=== PATIENT | female | born 1950 | race Caucasian/White ===

== ENCOUNTER 2023-05-27 07:38 | Emergency (ER) | payer MEDICARE ==
--- OUTSIDE RECORDS SUMMARY | 2023-05-27 07:45 | XMS REPORT | Continuity of Care Document ---
:1950 Author Organization [facility] t Address [address] [facility] [address] [place] [address] Care Team Providers Name Role Phone Ant IBARRA, Carol Ann Primary Care Physician [phone] KHUSHBOO Attending Clinician Unavailable Yosi Attending Clinician Unavailable Chiara YOO, Ole Machado Attending Clinician Unavailable Mercedez John DO Attending Clinician Angeles Rowe MD Attending Clinician ANGELES ROWE Attending Clinician Unavailable DENNYS GOMEZ Attending Clinician Unavailable Michael Lorenzo Attending Clinician KHUSHBOO Admitting Clinician Unavailable Yosi Admitting Clinician Unavailable Angeles Rowe MD Admitting Clinician ANGELES ROWE Admitting Clinician Unavailable Payers Payer Name Policy Type Policy Number Effective Date Expiration Date [facility]2GCW 2021 (MEDICARE 00:00:00 REPLACEMENT HMO) Problems Condition Condition Condition Status Onset Resolution Last Treating Co mments Source Name Details Category Date Date Treatment Clinician Date COVID-19 COVID-19 Disease Active Unive rs 8-24 ity of 00:00: [address] Branch FALL- BACK FALL- Diagnosis Active 2017-06-06 Memoria PAIN BACK PAIN 04-04 14:59:00 l Active 00:00: Jovi 04/04/2017 [facility] Jovi 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 Jovi (disorder) (disorder) Resolved Problem 04/08/2017 [facility] No known No known Disease Metho di active active st problems problems Hospit a l History of Past Illness Condition Condition Condition Status Onset Resolution Last Treating Co mments Source Name Details Category Date Date Treatment Clinician Date Contusion Contusion Problem 2017-04-08 2017-04-08 Memoria of of 04-05 05:05:50 05:05:50 l abdominal abdominal 05:00: Herm yogi wall, wall, 00 initial initial encounter encounter 04/05/2017 7 [facility] Dorsalgia, Dorsalgia Problem 2017-04-08 2017-04-08 Memoria unspecifie , 04-05 05:05:50 05:05:50 l d unspecifie 05:00: Renzo n d 00 04/05/2017 7 [facility] Allergies, Adverse Reactions, Alerts Allergy Allergy Status Severity Reaction(s) Onset Inactive Treating Comm ents Source Name Type Date Date Clinician CODEINE DRUG Active Rash 2020-0 Univers INGREDI 8-24 ity of 00:00: [place] 00 Medical Branch PENICILL DRUG Active Rash 2020-0 Univers IN INGREDI 824 ity of 00:00: [place] 00 Medical Branch Codeine Propensi Active Rash 202-0 Univers ty to 824 ity of adverse 00:00: [place] reaction 00 Medical s Branch Penicill Propensi Active Rash 2020-0 Univer s in ty to 824 ity of adverse 00:00: [place] reaction 00 Medical s Branch Codeine Propensi Active Methodi ty to [address] [facility] adverse 00:00: Hospita reaction 00 l s to drug Penicill Propensi Active Method i ins ty to 1-14 st adverse 00:00: Hospita reaction 00 l s to drug Penicill Propensi Active Method i ins ty to [address] adverse 00:00: Hospita reaction 00 l s to drug Codeine Codeine Active Memoria Sulfate Sulfate l [place] Demerol Demerol Active Memoria HCl HCl l [place] penicill penicill Active Memori a ins ins l Jovi Social History Social Habit Start Date Stop Date Quantity Comments Source Exposure to [facility] University of SARS-CoV-2 (event) [facility] Sexual orientation Method ist Hospital History SDOH Zoroastrian Alcohol Frequency Hospita l History SDOH Zoroastrian Alcohol Std Drinks Hospit al History SDWA Zoroastrian Alcohol Binge Hospital History SDOH 2021-04-27 2021-04-27 14 University o f Education 00:00:00 00:00:00 [facility] History of Social 2019-04-25 2019-04-[address] function 00:00:00 00:00:00 Hospital Alcohol intake 2018-09-17 2018-09-17 Current drinker Metho dist 00:00:00 00:00:00 of alcohol Hospital (finding) Alcohol Comment 2018-09-17 2018-09-17 occasional Zoroastrian 00:00:00 00:00:00 Hospital Tobacco use and 2018-09-17 2018-09-17 Smokeless tobacco [facility] exposure 00:00:00 00:00:00 non-user Hospital Sex Assigned At [birth year] Zoroastrian 00:00:00 00:00:00 Hospital Smoking Status Start Date Stop Date Source Social History [facility] Medications Ordered Filled Start Stop Current Ordering Indication Dosage Frequency Signature Comments Components Source Medication Medication Date Date Medication? Clinician (SIG) Name Name losartan 25 Yes 25mg Take 25 mg Univers mg tablet 8-28 by mouth ity of 19:28: daily. [address] hydroCHLORO Yes 12.5mg Take 12.5 Univers thiazide 8-28 mg by ity of 12.5 mg 19:28: mouth [place] capsule 11 daily. Medical Branch FLUoxetine Yes 20mg Take 20 mg U nivers 20 mg 8-28 by mouth ity of capsule 19:28: daily. [address] omeprazole Yes 20mg Take 20 mg U nivers 20 mg 8-28 by mouth ity of capsule 19:28: daily. [address] DULoxetine Yes 60mg Take 60 mg U nivers (CYMBALTA) 8-28 by mouth ity o f 60 mg 19:28: daily. At [place] capsule 11 night Medical Branch losartan 25 Yes 25mg Take 25 mg Univers mg tablet 8-28 by mouth ity of 19:28: daily. [address] hydroCHLORO Yes 12.5mg Take 12.5 Univers thiazide 8-28 mg by ity of 12.5 mg 19:28: mouth [place] capsule 11 daily. Medical Branch FLUoxetine 0 Yes 20mg Take 20 mg U nivers 20 mg 8-28 by mouth ity of capsule 19:28: daily. [address] Branch omeprazole 0 Yes 20mg Take 20 mg U nivers 20 mg 8-28 by mouth ity of capsule 19:28: daily. [address] DULoxetine 0 Yes 60mg Take 60 mg U nivers (CYMBALTA) 8-28 by mouth ity o f 60 mg 19:28: daily. At [address] Branch losartan 25 0 Yes 25mg Take 25 mg Univers mg tablet 8-28 by mouth ity of 19:28: daily. [address] hydroCHLORO 0 Yes 12.5mg Take 12.5 Univers thiazide 8-28 mg by ity of 12.5 mg 19:28: mouth [place] capsule 11 daily. [facility] Branch FLUoxetine 0 Yes 20mg Take 20 mg U nivers 20 mg 8-28 by mouth ity of capsule 19:28: daily. [address] omeprazole 0 Yes 20mg Take 20 mg U nivers 20 mg 8-28 by mouth ity of capsule 19:28: daily. [address] DULoxetine 0 Yes 60mg Take 60 mg U nivers (CYMBALTA) 8-28 by mouth ity o f 60 mg 19:28: daily. At [address] Branch losartan 25 0 Yes 25mg Take 25 mg Univers mg tablet 8-28 by mouth ity of 19:28: daily. [address] hydroCHLORO 0 Yes 12.5mg Take 12.5 Univers thiazide 8-28 mg by ity of 12.5 mg 19:28: mouth [place] capsule 11 daily. Medical Branch FLUoxetine 0 Yes 20mg Take 20 mg U nivers 20 mg 8-28 by mouth ity of capsule 19:28: daily. [address] omeprazole 0 Yes 20mg Take 20 mg U nivers 20 mg 8-28 by mouth ity of capsule 19:28: daily. [address] DULoxetine 0 Yes 60mg Take 60 mg U nivers (CYMBALTA) 8-28 by mouth ity o f 60 mg 19:28: daily. At [address] remdesivir 2020- No 100mg 100 mg, IV Univers 100 mg in 05-01 Infusion, ity of NaCl 0.9% 17:00: 18:00 ONCE, 1 [place] (NS[place] 100 mL 00 :00 dose, Sat Med ical MINI-BAG 05/01/21 at Bran h 1200, Administer over 60 Minutes, 100 mL
Is the patient mechanical ly ventilated ? NO
Is the patient requiring supplement al oxygen? YES remdesivir 2020- No 100mg 100 mg, IV Univers 100 mg in 05-01 Infusion, ity of NaCl 0.9% 17:00: 18:00 ONCE, 1 [place] (NS[place] 100 mL 00 :00 dose, Sat Med ical MINI-BAG 05/01/21 at [facility] h 1200, Administer over 60 Minutes, 100 mL
Is the patient mechanical ly ventilated ? NO
Is the patient requiring supplement al oxygen? YES losartan Yes 50mg 50 mg, Univers (COZAAR) 05-01 Oral, ity of tablet 50 14:00: DAILY, [place] mg 00 First dose Medical (after [place] last modificati on) on [facility] 05/01/21 at 0900, Until Discontinu ed, Routine losartan Yes 50mg 50 mg, Univers (COZAAR) 05-01 Oral, ity of tablet 50 14:00: DAILY, [place] mg 00 First dose Medical (after [place] last modificati on) on [facility] 05/01/21 at 0900, Until Discontinu ed, Routine DULoxetine Yes 60mg 60 mg, Unive rs (CYMBALTA) 05-01 Oral, QHS, ity of capsule 60 02:00: [place] [facility] on [facility] 04/30/21 at Branch 2100, Until Discontinu ed, Routine DULoxetine Yes 60mg 60 mg, Unive rs (CYMBALTA) 05-01 Oral, QHS, ity of capsule 60 02:00: First [place] mg 00 on [facility] 04/30/21 at Branch 2100, Until Discontinu ed, Routine albuterol Yes [id number] 2{puff} Inhale 2 Univers 90 8-28 Puffs ity of mcg/actuati 00:00: every 6 Manjeet as on inhaler 00 (six) Medical hours as Branch needed for Wheezing, Shortness of Breath, Bronchospa sm or Chest tightness. benzonatate 1-0 Yes [id number] 100mg Take 1 Univers 100 mg 8-28 capsule by ity of capsule 00:00: mouth 3 (three) Medical times Branch daily as needed for Cough. dexAMETHaso 2021-0 Yes [id number] 4mg Take 1 Univers ne 4 mg 8-28 tablet by ity of tablet 00:00: mouth [place] 00 every 12 Medical (twelve) Branch hours. albuterol 2020-0 Yes [id number] 2{puff} Inhale 2 Univers 90 8-28 Puffs ity of mcg/actuati 00:00: every 6 Manjeet as on inhaler 00 (six) Medical hours as Branch needed for Wheezing, Shortness of Breath, Bronchospa sm or Chest tightness. benzonatate 2020-0 Yes [id number] 100mg Take 1 Univers 100 mg 8-28 capsule by ity of capsule 00:00: mouth (three) Medical times Branch daily as needed for Cough. dexAMETHaso 1-0 Yes [id number] 4mg Take 1 Univers ne 4 mg 8-28 tablet by ity of tablet 00:00: mouth [place] 00 every 12 Medical (twelve) Branch hours. albuterol 2020-0 Yes [id number] 2{puff} Inhale 2 Univers 90 8-28 Puffs ity of mcg/actuati 00:00: every 6 Manjeet as on inhaler 00 (six) Medical hours as Branch needed for Wheezing, Shortness of Breath, Bronchospa sm or Chest tightness. benzonatate 1-0 Yes [id number] 100mg Take 1 Univers 100 mg 8-28 capsule by ity of capsule 00:00: mouth 3 (three) Medical times Branch daily as needed for Cough. dexAMETHaso 2021-0 Yes [id number] 4mg Take 1 Univers ne 4 mg 8-28 tablet by ity of tablet 00:00: mouth [place] 00 every 12 Medical (twelve) Branch hours. albuterol 1-0 Yes [id number] 2{puff} Inhale 2 Univers 90 8-28 Puffs ity of mcg/actuati 00:00: every 6 Manjeet as on inhaler 00 (six) Medical hours as Branch needed for Wheezing, Shortness of Breath, Bronchospa sm or Chest tightness. benzonatate Yes [id number] 100mg Take 1 Univers 100 mg 8-28 capsule by ity of capsule 00:00: mouth 3 [place] 00 (three) Medical times Branch daily as needed for Cough. dexAMETHaso Yes [id number] 4mg Take 1 Univers ne 4 mg 8-28 tablet by ity of tablet 00:00: mouth [place] 00 every 12 Medical (twelve) Branch hours. ketorolac 0 2020- No 15mg 15 mg, Unive rs (TORADOL) 04-29 Slow IV ity of injection 15:45: 01:09 Push, BID, [place] 15 mg 00 :00 4 doses, Medical First dose Branch on [place] 04/29/21 at 1045, Last dose on Mon04/30/21 at 1999, Routine
catering staff member approving Restricted medication : ANGELES ROWE ketorolac 2020- No 15mg 15 mg, Unive rs (TORADOL) 04-29 Slow IV ity of injection 15:45: 01:09 Push, BID, [place] 15 mg 00 :00 4 doses, Medical First dose Branch on [place] 04/29/21 at 1045, Last dose on Mon04/30/21 at 2000, Routine
catering staff member approving Restricted medication : ANGELES ROWE benzonatate Yes 100mg 100 mg, Un charlene (TESSALON 04-29 Oral, ity of PERLES) 15:41: TIDPRN, [place] capsule 100 04 Starting Medi ridge mg [place] Branch 04/29/21 at 1041, Until Discontinu ed, Routine, Cough benzonatate 0 Yes 100mg 100 mg, Un charlene (TESSALON 8- Oral, ity of PERLES) 15:41: TIDPRN, [place] capsule 100 04 Starting Medi ridge mg [place] Branch 04/29/21 at 1041, Until Discontinu ed, Routine, Cough omeprazole 0 Yes 20mg 20 mg, Unive rs (PRILOSEC) 8 Oral, ity of capsule 20 14:00: DAILY, [place] mg 00 First dose Medical on Mon04/28/21 at 0900, Until Discontinu ed, Routine omeprazole Yes 20mg 20 mg, Unive rs (PRILOSEC) 825 Oral, ity of capsule 20 14:00: DAILY, [place] mg 00 First dose Medical on Mon04/28/21 at 0900, Until Discontinu ed, Routine dexamethaso 2020- No 6mg 6 mg, IV U nivers ne 04-28 Push, ity of (DECADRON 14:00: 13:59 DAILY, 10 [place] PHOSPHATE[place] 00 :00 doses, Medical injection 6 First dose Br anch mg (after last modificati on) on Mon04/28/21 at 0900, Last dose on Mon05/07/21 at 0900, Routine dexamethaso 2020- No 6mg 6 mg, IV U nivers ne 04-28 Push, ity of (DECADRON 14:00: 13:59 DAILY, 10 [place] PHOSPHATE[place] 00 :00 doses, Medical injection 6 First dose Br anch mg (after last modificati on) on Mon04/28/21 at 0900, Last dose on Mon05/07/21 at 0900, Routine losartan 2020- No 25mg 25 mg, Univer s (COZAAR) 04-2827 Oral, ity of tablet 25 14:00: 16:11 DAILY, [place] mg 00 :49 First dose Medical on Mon04/28/21 at 0900, Until Discontinu ed, Routine losartan 2020- No 25mg 25 mg, Univer s (COZAAR) 04-28 Oral, ity of tablet 25 14:00: 16:11 DAILY, [place] mg 00 :49 First dose Medical on Mon04/28/21 at 0900, Until Discontinu ed, Routine enoxaparin Yes 40mg 40 mg, Unive rs (LOVENOX) 8 Subcutaneo ity of injection 01:00: us, Q12H, [place] as 40 mg 00 First dose Medical on Mon [place] 04/27/21 at 2000, Until Discontinu ed, Routine enoxaparin Yes 40mg 40 mg, Unive rs (LOVENOX) 8-25 Subcutaneo ity of injection 01:00: us, Q12H, [place] as 40 mg 00 First dose Medical on [facility] 04/27/21 at 2000, Until Discontinu ed, Routine NaCl 0.9% 0 2020- No [id number] 500mL at 999 Univers (NS) bolus 8- 08-24 mL/hr, 500 it y of infusion 22:00: 20:59 mL, IV [place] 500 mL 00 :00 Piggyback, Medical ONCE, 1 Branch dose, [facility] 04/27/21 at 1700, STAT NaCl 0.9% 0 2020- No [id number] 500mL at 999 Univers (NS) bolus 8- 08-24 mL/hr, 500 it y of infusion 22:00: 20:59 mL, IV [place] 500 mL 00 :00 Piggyback, Medical ONCE, 1 Branch dose, [facility] 04/27/21 at 1700, STAT guaiFENesin 0 Yes 200mg 200 mg, Un charlene (FENESIN 8-24 Oral, ity of IR) tablet 17:51: Q4HPRN, [place] 200 mg 18 Starting Medical [facility] 04/27/21 at 1251, Until Discontinu ed, Routine, Cough guaiFENesin 0 Yes 200mg 200 mg, Un charlene (FENESIN 8-24 Oral, ity of IR) tablet 17:51: Q4HPRN, [place] 200 mg 18 Starting Medical [facility] 04/27/21 at 1251, Until Discontinu ed, Routine, Cough ipratropium 0 Yes 2{puff} 2 Puff, Univers (ATROVENT 8-24 Inhalation ity of HFA) 17:51: , Q6HPRN, [place] inhaler 2 10 Starting Medica l Puff [facility] 04/27/21 at 1251, Until Discontinu ed, Routine, Shortness of Breath, Wheezing, Bronchospa sm, Chest tightness< br>Is this order for a patient with suspected or confirmed COVID-19 infection? Yes ipratropium 2020-0 Yes 2{puff} 2 Puff, Univers (ATROVENT 8-24 Inhalation ity of HFA) 17:51: , Q6HPRN, [place] inhaler 2 10 Starting Medica l Puff [facility] 04/27/21 at 1251, Until Discontinu ed, Routine, Shortness of Breath, Wheezing, Bronchospa sm, Chest tightness< br>Is this order for a patient with suspected or confirmed COVID-19 infection? Yes albuterol Yes 2{puff} 2 Puff, Un charlene (VENTOLIN) 04-27 Inhalation ity of inhaler 2 17:51: , Q6HPRN, [place] as Puff [address] [facility] 04/27/21 at 1251, Until Discontinu ed, Routine, Wheezing, Shortness of Breath, Bronchospa sm, Chest tightness albuterol Yes 2{puff} 2 Puff, Un charlene (VENTOLIN) 04-27 Inhalation ity of inhaler 2 17:51: , Q6HPRN, [place] as Puff 08 Starting [facility] 04/27/21 at 1251, Until Discontinu ed, Routine, Wheezing, Shortness of Breath, Bronchospa sm, Chest tightness traMADoL 2020- No 50mg 50 mg, Univer s (ULTRAM) 04-27 Oral, ity of tablet 50 17:50: 15:41 Q8HPRN, [place] mg 11 :17 Starting [facility] 04/27/21 at 1250, Until [place] 04/29/21 at 1041, Routine, Pain (scale 4-6) traMADoL 2020- No 50mg 50 mg, Univer s (ULTRAM) 04-27 Oral, ity of tablet 50 17:50: 15:41 Q8HPRN, [place] mg 11 :17 Starting [facility] 04/27/21 at 1250, Until [place] 04/29/21 at 1041, Routine, Pain (scale 4-6) acetaminoph Yes 650mg 650 mg, Un charlene en 04-27 Oral, ity of (TYLENOL) 17:50: Q6Judy YOO tablet 650 07 Starting Medic al mg [facility] 04/27/21 at 1250, Until Discontinu ed, Routine, Pain (scale 1-3) acetaminoph Yes 650mg 650 mg, Un charlene en 04-27 Oral, ity of (TYLENOL) 17:50: Q6HPRN, [place] tablet 650 07 [facility] at 1250, Until Discontinu ed, Routine, Pain (scale 1-3) dexamethaso 2020- No 10mg 10 mg, IV Univers ne 04-27 Push, ity of (DECADRON 14:45: 14:07 ONCE, 1 [place] PHOSPHATE) 00 :00 dose, Tue Medi ridge injection 04/27/21 at Bran ch 10 mg 0945, STAT dexamethaso 2020- No 10mg 10 mg, IV Univers ne 04-27 Push, ity of (DECADRON 14:45: 14:07 ONCE, 1 [place] PHOSPHATE) 00 :00 dose, Tue Medi ridge injection 04/27/21 at Bran ch 10 mg 0945, STAT ondansetron 2020- No 4mg 4 mg, Slow Univers (ZOFRAN 04-27 IV Push, ity of (PF)) 14:00: 13:09 ONCE, 1 [place] injection 4 00 :00 dose, Tue Med ical mg 04/27/21 at [place] 0900, OZIEL acetaminoph 2020- No 1000mg 1,000 mg, Univers en 04-27 Oral, ity of (TYLENOL) 14:00: 13:09 ONCE, 1 [place] tablet 00 :00 dose, Tue Medical 1,000 mg 04/27/21 at [facility] h 0900, OZIEL NaCl 0.9% 2020- No 1000mL at 999 Uni vers (NS) bolus 04-27 mL/hr, ity of infusion 14:00: 13:09 1,000 mL, Manjeet as 1,000 mL 00 :00 IV Medical Infusion, [place] ONCE, 1 dose, 04/27/21 at 0900, STAT ondansetron 2020- No 4mg 4 mg, Slow Univers (ZOFRAN 04-27 IV Push, ity of (PF)) 14:00: 13:09 ONCE, 1 [place] injection 4 00 :00 dose, Tue Med ical mg 04/27/21 at Branch 0900, OZIEL acetaminoph 2020- No 1000mg 1,000 mg, Univers en 04-2724 Oral, ity of (TYLENOL) 14:00: 13:09 ONCE, 1 [place] tablet 00 :00 dose, Tue Medical 1,000 mg 04/27/21 at [facility] h 0900, OZIEL NaCl 0.9% 2020- No 1000mL at 999 Uni vers (NS) bolus 04-2724 mL/hr, ity of infusion 14:00: 13:09 1,000 mL, Manjeet as 1,000 mL 00 :00 IV Medical Infusion, [place] ONCE, 1 dose, 04/27/21 at 0900, STAT levocetiriz 2019-0 Yes TAKE 1 Meth gayla ine (XYZAL) 2-24 TABLET(5 st 5 MG tablet 00:00: MG) BY [facility] 00 MOUTH l EVERY EVENING levocetiriz 2020-0 Yes TAKE 1 Meth gayla ine (XYZAL) 2-24 TABLET(5 st 5 MG tablet 00:00: MG) BY [facility] 00 MOUTH l EVERY EVENING levocetiriz 2020-0 Yes TAKE 1 Meth gayla ine (XYZAL) 2-24 TABLET(5 st 5 MG tablet 00:00: MG) BY [facility]osp [facility] 00 MOUTH l EVERY EVENING fluticasone 2019-0 Yes SHAKE Metho di propionate 9-[address] (FLONASE) 00:00: USE 2 Hospita 50 00 SPRAYS(100 l mcg/actuati MCG) IN on nasal EACH spray NOSTRIL DAILY fluticasone 2018-0 Yes SHAKE Metho di propionate 9-[address] (FLONASE) 00:00: USE 2 Hospita 50 00 SPRAYS(100 l mcg/actuati MCG) IN on nasal EACH spray NOSTRIL DAILY fluticasone 2019-0 Yes SHAKE Metho di propionate 9-[address] (FLONASE) 00:00: USE 2 Hospita 50 00 SPRAYS(100 l mcg/actuati MCG) IN on nasal EACH spray NOSTRIL DAILY cholecalcif Yes 1000U QD Take 1,000 Methodi dom, 1-[address] vitamin D3, 08:11: mouth Hospi ta (VITAMIN 15 daily. l D3) 1,000 unit tablet cholecalcif 2019-0 Yes 1000U QD Take 1,000 Methodi dom, 1-[address] vitamin D3, 08:11: mouth Hospi ta (VITAMIN 15 daily. l D3) 1,000 unit tablet cholecalcif 2019-0 Yes 1000U QD Take 1,000 Methodi dom, 1-[address] vitamin D3, 08:11: mouth Hospi ta (VITAMIN 15 daily. l D3) 1,000 unit tablet aspirin 2019-0 Yes 81mg QD Take 81 mg Meth gayla (ECOTRIN) 1-[address] 81 MG 08:11: daily. Hospita enteric 03 l coated tablet aspirin 2019-0 Yes 81mg QD Take 81 mg Meth gayla (ECOTRIN) 1-[address] 81 MG 08:11: daily. Hospita enteric 03 l coated tablet aspirin 2019-0 Yes 81mg QD Take 81 mg Meth gayla (ECOTRIN) 1-[address] 81 MG 08:11: daily. Hospita enteric 03 l coated tablet pantoprazol Yes TK 1 T PO M ethodi e 1-[address] (PROTONIX) 00:00: MONTHS AND H ospita 40 MG EC 00 THEN TK 1 l tablet T PO QAM AFTER THE 3 MONTHS pantoprazol Yes TK 1 T PO M ethodi e 1-[address] (PROTONIX) 00:00: MONTHS AND H ospita 40 MG EC 00 THEN TK 1 l tablet T PO QAM AFTER THE 3 MONTHS pantoprazol Yes TK 1 T PO M ethodi e 1-[address] (PROTONIX) 00:00: MONTHS AND H ospita 40 MG EC 00 THEN TK 1 l tablet T PO QAM AFTER THE 3 MONTHS escitalopra 2017-09 Yes TK 1 T PO M ethodi m (LEXAPRO) -[address] 20 MG 00:00: Hospita tablet 00 l escitalopra 2017-09 Yes TK 1 T PO M ethodi m (LEXAPRO) -[address] 20 MG 00:00: Hospita tablet 00 l escitalopra 2017-09 Yes TK 1 T PO M ethodi m (LEXAPRO) 1-[address] 20 MG 00:00: Hospita tablet 00 l Nitrofurant Yes 100 mg = 1 Memoria oin 100 MG 8-02 cap, PO, l Oral 07:27: BID, X 7 [place] Capsule 00 day, # 14 [Macrobid] cap, 0 Refill(s) tramadol Yes 50 mg = 1 Arun sofi hydrochlori 8-02 tab, PO, l de 50 MG 07:27: Q6H, PRN Yesenia nn Oral Tablet 00 Pain, X 3 day, # 12 tab, 0 Refill(s) Nitrofurant Yes 100 mg = 1 Memoria oin 100 MG 8-02 cap, PO, l Oral 07:27: BID, X 7 [place] Capsule 00 day, # 14 [Macrobid] cap, 0 Refill(s) tramadol Yes 50 mg = 1 Arun sofi hydrochlori 8-02 tab, PO, l de 50 MG 07:27: Q6H, PRN Yesenia nn Oral Tablet 00 Pain, X 3 day, # 12 tab, 0 Refill(s) Vital Signs Vital Name Observation Time Observation Value Comments Source Systolic blood 2021-05-01 16:41:00 125 mm[Hg] [facility] Diastolic blood 2021-05-01 16:41:00 67 mm[Hg] [facility] Heart rate 2021-05-01 16:41:00 66 /min [facility] Body temperature 2021-05-01 16:41:00 36.72 [facility] Respiratory rate 2021-05-01 16:41:00 20 /min [facility] Oxygen saturation in 2021-05-01 16:41:00 94 /min [facility] Arterial blood by [facility] Pulse oximetry [place] Body height 2021-04-27 16:37:00 162.6 cm [facility] Body weight 2021-04-27 16:37:00 82.555 kg [facility] BMI 2021-04-27 16:37:00 31.24 kg/m2 [facility] Respitory Rate 2017-04-05 07:33:00 Memori al [facility] Heart Rate 2017-04-05 07:33:00 [facility] [place] Systolic (mm Hg) 2017-04-05 07:33:00 Arun rial [place] Diastolic (mm Hg) 2017-04-05 07:33:00 Mem orial [place] Respitory Rate 2017-04-05 06:18:00 Memori al [place] Systolic (mm Hg) 2017-04-05 06:18:00 Arun rial [place] Diastolic (mm Hg) 2017-04-05 06:18:00 Mem orial [facility] Heart Rate 2017-04-05 06:18:00 [facility] [place] Respitory Rate 2017-04-05 03:58:00 Memori al [facility] Heart Rate 2017-04-05 03:58:00 [facility] Temperature Oral (F) 2017-04-05 03:58:00 97.6 F [facility] Weight 2017-04-05 03:58:00 [facility] Systolic (mm Hg) 2017-04-05 03:58:00 Arun rial [place] Diastolic (mm Hg) 2017-04-05 03:58:00 Mem orial [facility] Procedures Procedure Date / Time Performing Clinician Source Performed CBC WITH DIFF 2021-04-28 09:42:00 Soledad [facility] GLYCOSYLATED HEMOGLOBIN 2021-04-28 09:42:00 Soledad [facility] (A1C) [facility] N-TERMINAL PRO-BNP 2021-04-28 09:42:[address] [facility] FERRITIN SERUM 2021-04-28 09:42:00 Soledad [facility] HEPATIC FUNCTION PANEL 2021-04-28 09:42:00 Soledad [facility] ([id number]) (ALB,T.PRO,BILI Medical Branch T,BU/BC,ALT,AST,ALK PHOS) BASIC METABOLIC PANEL 2021-04-28 09:42:00 Soledad [facility] (NA, K, CL, CO2, Medical Branch GLUCOSE, BUN, CREATININE, CA) LIPID PANEL 2021-04-28 09:42:00 Soledad [facility] ([id number])(TOTAL Medical [place] CHOLESTEROL, TRIGLYCERIDES, HDL) LACTIC ACID WHOLE BLOOD 2021-04-27 22:04:00 Soledad [facility] LACTIC ACID WHOLE BLOOD 2021-04-27 18:40:00 Soledad [facility] URINALYSIS 2021-04-27 18:38:00 Soledad [facility] BLOOD CULTURE SCREEN 2021-04-27 18:38:00 Soledad [facility] D-DIMER 2021-04-27 18:37:00 Soledad [facility] PROCALCITONIN 2021-04-27 18:37:00 Soledad [facility] LACTATE DEHYDROGENASE 2021-04-27 18:37:00 Soledad [facility] C-REACTIVE PROTEIN 2021-04-27 18:37:[address] [facility] XR CHEST 1 VW 2021-04-27 13:20:34 Mercedez [facility] HB ECG ROUTINE & RHYTHM 2021-04-27 13:05:49 [facility] CBC WITH DIFF 2021-04-27 13:04:00 [facility] GLYCOSYLATED HEMOGLOBIN 2021-04-27 13:04:00 Soledad [facility] (A1C) [facility] N-TERMINAL PRO-BNP 2021-04-27 13:04:[address] [facility] LACTIC ACID WHOLE BLOOD 2021-04-27 13:04:00 [place] [facility] FERRITIN SERUM 2021-04-27 13:04:00 Soledad [facility] TROPONIN I 2021-04-27 13:04:00 [place] [facility] COMP. METABOLIC PANEL 2021-04-27 13:04:00 [facility] [facility] ([id number]) [facility] LIPID PANEL 2021-04-27 13:04:00 Soledad [facility] ([id number])(TOTAL Medical Branch CHOLESTEROL, TRIGLYCERIDES, HDL) Hysterectomy [facility] Plan of Care Planned Activity Planned Date Details Comments Source Future Scheduled 2023-05-10 Screening for [facility] Test 02:58:49 malignant neoplasm of colon (procedure) [code = 678172125] Future Scheduled 2023-05-10 Screening for [facility] Test 02:58:49 malignant neoplasm of colon (procedure) [code = 177142588] Future Scheduled 2023-05-10 Screening for [facility] Test 02:58:49 malignant neoplasm of colon (procedure) [code = 932719991] Future Scheduled 2023-05-10 COVID-19 VACCINE (#1) [facility] Test 02:58:49 [code = COVID-19 VACCINE (#1)] Future Scheduled 2023-05-10 Hepatitis C screening [facility] Test 02:58:49 (procedure) [code = 065639195] Future Scheduled 2023-05-10 BREAST CANCER [facility] Test 02:58:49 SCREENING [code = BREAST CANCER SCREENING] Future Scheduled 2023-05-10 Screening for [facility] Test 02:58:49 malignant neoplasm of colon (procedure) [code = 133587111] Future Scheduled 2023-05-10 Screening for [facility] Test 02:58:49 malignant neoplasm of colon (procedure) [code = 640564231] Future Scheduled 2023-05-10 SHINGLES VACCINES (1 Met [facility] Test 02:58:49 of 2) [code = SHINGLES VACCINES (1 of 2)] Future Scheduled 2023-05-10 65+ PNEUMOCOCCAL [facility] Test 02:58:49 VACCINE (1 - PCV) [code = 65+ PNEUMOCOCCAL VACCINE (1 - PCV)] Future Scheduled 2023-05-10 INFLUENZA VACCINE (#1) [facility] Test 02:58:49 [code = INFLUENZA VACCINE (#1)] Future Scheduled 2022-05-06 HEPATITIS B VACCINES [facility] Test 03:40:23 (1 of 3 - 3-dose series) [code = HEPATITIS B VACCINES (1 of 3 - 3-dose series)] Future Scheduled 2022-05-06 COVID-19 VACCINE (#1) [facility] Test 03:40:23 [code = COVID-19 VACCINE (#1)] Future Scheduled 2022-05-06 Hepatitis C screening [facility] Test 03:40:23 (procedure) [code = 993034098] Future Scheduled 2022-05-06 BREAST CANCER [facility] Test 03:40:23 SCREENING [code = BREAST CANCER SCREENING] Future Scheduled 2022-05-06 COLONOSCOPY SCREENING [facility] Test 03:40:23 [code = COLONOSCOPY SCREENING] Future Scheduled 2022-05-06 SHINGLES VACCINES (1 Met [facility] Test 03:40:23 of 2) [code = SHINGLES VACCINES (1 of 2)] Future Scheduled 2022-05-06 65+ [facility]OCOCCAL [facility] Test 03:40:23 VACCINE (1 - PCV) [code = 65+ PNEUMOCOCCAL VACCINE (1 - PCV)] Future Scheduled 2022-05-06 INFLUENZA VACCINE [facility] Test 03:40:23 [code = INFLUENZA VACCINE] Future Scheduled 2021-10-05 COVID-19 VACCINE (1) [facility] Test 22:28:34 [code = COVID-19 VACCINE (1)] Future Scheduled 2021-10-05 Hepatitis C screening [facility] Test 22:28:34 (procedure) [code = 355591403] Future Scheduled 2021-10-05 BREAST CANCER [facility] Test 22:28:34 SCREENING [code = BREAST CANCER SCREENING] Future Scheduled 2021-10-05 COLONOSCOPY SCREENING [facility] Test 22:28:34 [code = COLONOSCOPY SCREENING] Future Scheduled 2021-10-05 SHINGLES VACCINES (#1) [facility] Test 22:28:34 [code = SHINGLES VACCINES (#1)] Future Scheduled 2021-10-05 65+ PNEUMOCOCCAL [facility] Test 22:28:34 VACCINE (1 of 1 - PPSV23) [code = 65+ PNEUMOCOCCAL VACCINE (1 of 1 - PPSV23)] Future Scheduled 2021-10-05 INFLUENZA VACCINE Method [facility] Test 22:28:34 [code = INFLUENZA VACCINE] Encounters Start End Encounter Admission Attending Care Care Encounter Source Date/Time Date/Time Type Type Clinicians Facility Department ID 2022-06-10 2022-06-10 Outpatient [facility] [id number] [facility] 00:00:00 00:00:00 [id number] [facility] l [facility] 2022-06-10 2022-06-10 Outpatient [facility] [id number] [facility] 00:00:00 00:00:00 [id number] Medica l Group 2022-06-10 2022-06-10 Outpatient [facility] G [id number] [facility] 00:00:00 00:00:00 [id number] Medica l Group 2022-05-06 2022-05-06 Outpatient [facility] DMG [id number] [facility] 00:00:00 00:00:00 [id number] Medica l Group 2022-05-03 2022-05-03 Outpatient Williams_V [facility]G DMG [id number] [facility] 00:00:00 00:00:00 [id number] Medica l Group 2022-03-18 2022-03-18 Outpatient DMG DMG [id number] [facility] 07:30:00 07:30:00 [id number] Medica l Group 2021-11-24 2021-11-24 Outpatient DMG DMG [id number] [facility] 09:00:00 09:00:00 [id number] Medica l Group 2021-06-07 2021-06-07 Outpatient PRIV PRIV [id number] [id number] [facility] 00[facility]00:00 00:00:00 [id number] Medica l 2021-06-07 2021-06-07 Outpatient PRIV PRIV [id number] [id number] [facility] 00:00:00 00:00:00 [id number] Medica l 2021-05-03 2021-05-03 Transition Russell Guadarrama [id number] [facility] 00:00:00 00:00:00 of Care Ole Carter Aguayo [id number] [phone] [facility] [address] Branch 2021-04-27 2021-05-01 [facility] John [facility] [id number] Univers 07:50:00 14:20:00 Encounter Angeles Rowe [facility] [id number] [place] [phone] [facility] 109 Branch (CLC) 2021-04-27 2021-05-01 Inpatient X SOLEDAD [facility] PATRICK [id number] Univers 07:50:00 14:20:00 ANGELES alvarenga [facility] 2020-07-16 2020-07-16 [facility] [id number] [place] 00:00:00 00:00:00 DENNYS [facility] 2019-06-23 2019-06-23 Emergency E MHBL MHBL 7500 MHBL 12:07:00 12:07:00 2017-04-05 2017-04-05 Emergency [facility] [id number] Memoria 03:45:00 07:41:00 r Burton 00 l [facility] 2017-04-05 2017-04-05 Emergency [facility] [id number] Memoria 03:45:00 07:41:00 r Burton 00 l [facility] 2017-04-04 2017-04-05 Outpatient Basnawi, [address] [id number] 22:45:00 02:41:00 Abdullah 00 Darrick Results Test Description Test Time Test Comments Results Result Comments Source GLYCOSYLATED HEMOGLOBIN (A1C) 2021-04-28 11:03:12 Test Item Value Reference Range Interpretation Comme nts HGB A1C (test code = 4548-4) 6.9 % 4.0-5.7 H CALE (test code = CALE) Reference RangesNormal: <5.7%Prediabetes: 5.7 - 6.4%Diabetes: > 6.5% Lab Interpretation (test code = Abnormal 96257-2) [facility]2021-04-28 11:03:12 Test Item Value Reference Range Interpretation Comments HGB A1C (test code = 4548-4) 6.9 % 4.0-5.7 H CALE (test code = CALE) Lab Interpretation (test code = Abnormal 52187-3) [facility] with [id number] 11:00:56 Test Item Value Reference Range Interpretation Comments WBC (test code = See_Comment H [Automated 6690-2) message] The sy stem which generated this result transmitted reference range : 4.30 - 11.10 10*3/?L. The reference range was not used to interpret this result as normal/abnormal . RBC (test code = See_Comment L [Automated 789-8) message] The sy stem which generated this result transmitted reference range : 3.93 - 5.25 10*6/?L. The reference range was not used to interpret this result as normal/abnormal . HGB (test code = 10.7 g/dL 11.6-15.0 L 718-7) HCT (test code = 32.6 % 35.7-45.2 L 4544-3) MCV (test code = 86.0 fL 80.6-95.5 787-2) MCH (test code = 28.2 pg 25.9-32.8 785-6) MCHC (test code = 32.8 g/dL 31.6-35.1 786-4) RDW-SD (test code = 44.0 fL 39.0-49.9 95894-5) RDW-CV (test code = 14.1 % 12.0-15.5 788-0) PLT (test code = See_Comment [Automated 777-3) message] The sy stem which generated this result transmitted reference range : 166 - 358 10*3/ ?L. The reference r bj was not used to interpret this result as normal/abnormal . MPV (test code = 10.0 fL 9.5-12.9 59138-4) IPF % (test code = 2.7 % 1.3-7.7 Platelet count [id number]) measured by fluorescence method. NRBC/100 WBC (test See_Comment [Automat ed code = 5557514584) message] The system which generated this result transmitted reference range : 0.0 - 10.0 /100 WBCs. The refer ence range was not u sed to interpret th is result as normal/abnormal . NRBC x10^3 (test code <0.01 See_Comment [Auto mated = 2299744495) message] The s ystem which generated this result transmitted reference range : 10*3/?L. The reference range was not used to interpret this result as normal/abnormal . GRAN MAT (NEUT) % 87.2 % (test code = 770-8) IMM GRAN % (test code 0.80 % = 6764515154) LYMPH % (test code = 8.5 % 736-9) MONO % (test code = 3.4 % 5905-5) EOS % (test code = 0.0 % 713-8) BASO % (test code = 0.1 % 706-2) GRAN MAT x10^3(ANC) 12.16 10*3/uL 1.88-7.09 H (test code = 2279452960) IMM GRAN x10^3 (test 0.11 10*3/uL 0.00-0.06 H code = 9428174851) LYMPH x10^3 (test 1.19 10*3/uL 1.32-3.29 L code = 731-0) MONO x10^3 (test code 0.47 10*3/uL 0.33-0.92 = 742-7) EOS x10^3 (test code <0.03 0.03-0.39 L = 711-2) BASO x10^3 (test code <0.03 0.01-0.07 = 704-7) Lab Interpretation Abnormal (test code = 24567-9) [facility] with [id number] 11:00:56 Test Item Value Reference Range Interpretation Comments WBC (test code = See_Comment H [Automated 5290-2) message] The system which generated this result transmit sheila reference range : 4.30 - 11.10 10*3/?L. The reference range was not used to interpret this result as normal/abnormal . RBC (test code = See_Comment L [Automated 789-8) message] The system which generated this result transmit sheila reference range : 3.93 - 5.25 10*6/?L. The reference range was not used to interpret this result as normal/abnormal . HGB (test code = 10.7 g/dL 11.6-15.0 L 718-7) HCT (test code = 32.6 % 35.7-45.2 L 4544-3) MCV (test code = 86.0 fL 80.6-95.5 787-2) MCH (test code = 28.2 pg 25.9-32.8 785-6) MCHC (test code = 32.8 g/dL 31.6-35.1 786-4) RDW-SD (test code = 44.0 fL 39.0-49.9 71095-1) RDW-CV (test code = 14.1 % 12.0-15.5 788-0) PLT (test code = See_Comment [Automated 777-3) message] The system which generated this result transmit sheila reference range : 166 - 358 10*3/ ?L. The reference range was not u sed to interpret th is result as normal/abnormal . MPV (test code = 10.0 fL 9.5-12.9 16547-1) IPF % (test code = 2.7 % 1.3-7.7 1014367817) NRBC/100 WBC (test See_Comment [Automat ed code = 8373191803) message] The system which generated this result transmit sheila reference range : 0.0 - 10.0 /100 WBCs. The reference range was not used to interpret this result as normal/abnormal . NRBC x10^3 (test code <0.01 See_Comment [Auto mated = 9760838394) message] The system which generated this result transmit sheila reference range : 10*3/?L. The reference range was not used to interpret this result as normal/abnormal . GRAN MAT (NEUT) % 87.2 % (test code = 770-8) IMM GRAN % (test code 0.80 % = 0933385264) LYMPH % (test code = 8.5 % 736-9) MONO % (test code = 3.4 % 5905-5) EOS % (test code = 0.0 % 713-8) BASO % (test code = 0.1 % 706-2) GRAN MAT x10^3(ANC) 12.16 10*3/uL 1.88-7.09 H (test code = 4618520174) IMM GRAN x10^3 (test 0.11 10*3/uL 0.00-0.06 H code = 3873804399) LYMPH x10^3 (test code 1.19 10*3/uL 1.32-3.29 L = 731-0) MONO x10^3 (test code 0.47 10*3/uL 0.33-0.92 = 742-7) EOS x10^3 (test code = <0.03 0.03-0.39 L 711-2) BASO x10^3 (test code <0.03 0.01-0.07 = 704-7) Lab Interpretation Abnormal (test code = 97830-5) [facility] [id number] 10:42:11 Test Item Value Reference Range Interpretation Comments FERRITIN (test code = 268.0 ng/mL 11.0-264.0 H 2721963372) CALE (test code = CALE) Biotin has been reported to cause a negative bias, interpret results relative to patient's use of biotin. Lab Interpretation (test Abnormal code = 04588-3) [facility] [id number] 10:42:11 Test Item Value Reference Range Interpretation Comments FERRITIN (test code = 3014901871) 268.0 ng/mL 11.0-264.0 H CALE (test code = CALE) Lab Interpretation (test code = Abnormal 42461-8) [facility] [id number] 10:16:46 Test Item Value Reference Range Interpretation Comments NT-proBNP (test code 648 pg/mL See_Comment H [Autom ated = 7579444689) message] The system which generated this result transmitted reference range : <=125. The reference range was not used to interpret this result as normal/abnormal . CALE (test code = CALE) Biotin has been reported to cause a negative bias, interpret results relative to patient's use of biotin. Lab Interpretation Abnormal (test code = 52356-3) [facility] [id number] 10:16:46 Test Item Value Reference Range Interpretation Comments NT-proBNP (test code = 648 pg/mL See_Comment H [Aut omated message] 9937719375) The system [employer] generated this result transmit sheila reference range : <=125. The refe rence range was not u sed to interpret th is result as normal/abnormal . CALE (test code = CALE) Lab Interpretation (test Abnormal code = 73066-4) [facility]ville[facility] (54955) (ALB,T.PRO,BILI T,BU/BC,ALT,AST,ALK PHOS)2021-04-28 10:11:27 Test Item Value Reference Range Interpretation Comments TOTAL BILI (test code = 5134501245) 0.5 mg/dL 0.1-1.1 BILI UNCON (test code = 2057418297) 0.0 mg/dL 0.1-1.1 L BILI CONJ (test code = 8651870731) 0.0 mg/dL 0.0-0.3 T PROTEIN (test code = 6152993420) 6.4 g/dL 6.3-8.2 ALBUMIN (test code = 4827359182) 3.2 g/dL 3.5-5.0 L ALK PHOS (test code = 9170926705) 61 U/L 34-122 ALTv (test code = 1742-6) 31 U/L 5-35 AST(SGOT) (test code = 6555412381) 22 U/L 13-40 Lab Interpretation (test code = Abnormal 40184-5) [facility]ville[facility] (54563)(TOTAL CHOLESTEROL, TRIGLYCERIDES, HDL)2021-04-28 10:11:27 Test Item Value Reference Range Interpretation Comments CHOL (test code = 131 mg/dL 120-200 3880001382) HDL (test code = 35 mg/dL >50 L 0027473627) HDLC RATIO (test code = See_Comment [Au tomated message] 7950817987) The system [employer] generated this result transmit sheila reference range : <=4.5. The refe rence range was not u sed to interpret th is result as normal/abnormal . TRIG (test code = 87 mg/dL 30-170 1046809019) LDL CHOL (test code = 79 mg/dL See_Comment [Auto mated message] 34894-0) The system [employer] generated this result transmit sheila reference range : <=160. The refe rence range was not u sed to interpret th is result as normal/abnormal . VLDL (test code = 17 mg/dL 5-60 5687376136) Lab Interpretation (test Abnormal code = 05305-3) [facility] (98819) (ALB,T.PRO,BILI T,BU/BC,ALT,AST,ALK PHOS)2021-04-28 10:11:27 Test Item Value Reference Range Interpretation Comments TOTAL BILI (test code = 7103255327) 0.5 mg/dL 0.1-1.1 BILI UNCON (test code = 5856783168) 0.0 mg/dL 0.1-1.1 L BILI CONJ (test code = 8171785817) 0.0 mg/dL 0.0-0.3 T PROTEIN (test code = 4549543729) 6.4 g/dL 6.3-8.2 ALBUMIN (test code = 3418184421) 3.2 g/dL 3.5-5.0 L ALK PHOS (test code = 7723582085) 61 U/L 34-122 ALTv (test code = 1742-6) 31 U/L 5-35 AST(SGOT) (test code = 4293613743) 22 U/L 13-40 Lab Interpretation (test code = Abnormal 78215-5) [facility] (29831)(TOTAL CHOLESTEROL, TRIGLYCERIDES, HDL)2021-04-28 10:11:27 Test Item Value Reference Range Interpretation Comments CHOL (test code = 131 mg/dL 120-200 5275878054) HDL (test code = 35 mg/dL >50 L 3761891974) HDLC RATIO (test code = See_Comment [Au tomated message] 9532196903) The system [employer] generated this result transmit sheila reference range : <=4.5. The refe rence range was not u sed to interpret th is result as normal/abnormal . TRIG (test code = 87 mg/dL 30-170 4304220651) LDL CHOL (test code = 79 mg/dL See_Comment [Auto mated message] 27444-3) The system [employer] generated this result transmit sheila reference range : <=160. The refe rence range was not u sed to interpret th is result as normal/abnormal . VLDL (test code = 17 mg/dL 5-60 7482268860) Lab Interpretation (test Abnormal code = 21825-7) [facility] (NA, K, CL, CO2, GLUCOSE, BUN, CREATININE, CA)2021-04-28 10:11:26 Test Item Value Reference Range Interpretation Comments NA (test code = 138 mmol/L 135-145 3037988206) K (test code = 4.0 mmol/L 3.5-5.0 7356255965) CL (test code = 102 mmol/L 98-108 1246547571) CO2 TOTAL (test code 28 mmol/L 23-31 = 7811618978) AGAP (test code = 2-16 8458876097) BUN (test code = 19 mg/dL 7-23 0744851105) GLUCOSE (test code = 109 mg/dL 70-110 9005627108) CREATININE (test code 0.59 mg/dL 0.50-1.04 = 1684376826) CALCIUM (test code = 8.8 mg/dL 8.6-10.6 7365176311) eGFR (test code = mL/min/1.73m2 9269159376) CALE (test code = CALE) Association of Glomerular Filtration Rate (GFR) and Staging of Kidney Disease* + + +- +| GFR (mL/min/1.73 m2) ?| With Kidney Damage ?| ?Without Kidney Damage+ ------+ ----+ ------+| ?>90 ?| ?Stage one ?| ? Normal ?+ -+ + -+| ?60-89 ?| ?Stage two ?| ? Decreased GFR ? + + +- +| ?30-59 ?| ?Stage three ?| ? Stage three ? + + +- +| ?15-29 ?| ?Stage four ? | ? Stage four ?+ -+ + -+| ?<15 (or dialysis) ? ?| ?Stage five ? | ? Stage five ?+ -+ + -+ *Each stage assumes the associated GFR level has been in effect for at least three months. ?Stages 1 to 5, with or without kidney disease, indicate chronic kidney disease. Notes: Determination of stages one and two (with eGFR >59mL/min/1.73 m2) requires estimation of kidney damage for at least three months as defined by structural or functional abnormalities of the kidney, manifested by either:Pathological abnormalities or Markers of kidney damage (including abnormalities in the composition of the blood or urine or abnormalities in imaging tests). [facility] Metabolic Panel (NA, K, CL, CO2, GLUCOSE, BUN, CREATININE, CA)2021-04-28 10:11:26 Test Item Value Reference Range Interpretation Comments NA (test code = 6960062569) 138 mmol/L 135-145 K (test code = 6160911078) 4.0 mmol/L 3.5-5.0 CL (test code = 4494845101) 102 mmol/L 98-108 CO2 TOTAL (test code = 7613573592) 28 mmol/L 23-31 AGAP (test code = 8056196668) 2-16 BUN (test code = 3734734594) 19 mg/dL 7-23 GLUCOSE (test code = 9041758352) 109 mg/dL 70-110 CREATININE (test code = 0.59 mg/dL 0.50-1.04 5454001609) CALCIUM (test code = 1466832172) 8.8 mg/dL 8.6-10.6 eGFR (test code = 8713256417) mL/min/1.73m2 CALE (test code = CALE) [facility] Whole [id number] 22:10:43 Test Item Value Reference Range Interpretation Comments LACTIC ACID (test code = 1.79 mmol/L 0.50-2.20 7757199705) Lab Interpretation (test code = Normal 50548-0) [facility]ville[facility] Whole [id number] 22:10:43 Test Item Value Reference Range Interpretation Comments LACTIC ACID (test code = 1.79 mmol/L 0.50-2.20 2515309943) Lab Interpretation (test code = Normal 51100-0) [facility]-REACTIVE [id number] 19:35:59 Test Item Value Reference Range Interpretation Comments CRP (test code = 6310918513) 22.5 mg/dL <1.0 H Lab Interpretation (test code = Abnormal 50645-4) [facility]-REACTIVE [id number] 19:35:59 Test Item Value Reference Range Interpretation Comments CRP (test code = 2451384515) 22.5 mg/dL <1.0 H Lab Interpretation (test code = Abnormal 76040-0) [facility]ville[facility]AL[facility]ONIN2021-08-24 19:28:58 Test Item Value Reference Range Interpretation Comments Procalcitonin (test 0.51 ng/mL <0.08 H code = 4532075875) CALE (test code = CALE) INTERPRETATION OF PROCALCITONIN RESULTS IN ADULTS >= 18 YEARS OF AGE Initiation and discontinuation of antibiotics on patients with suspected or confirmed Lower Respiratory Tract Infection in Adults >= 18 years of age. + +-------- --------+ + -----+|Procalcitonin |Interpretation ?|Antibiotic ? ? |Considerations ? |ng/mL ? | ?|recommendation | ? + +-------- --------+ + -----+| <0.1 ? | Bacterial ? ? ?| Strongly ? ? ?| ? | ?| infection very | discouraged ? | Overruling: ? | ?| unlikely ? ? ? | ? | ? Clinically unstable ? ? ? + +-------- --------+ + ? High risk for adverse ? ? | <0.25 ?| Bacterial ? ? ?| Discouraged ? | ? outcome ? | ?| infection ? ? ?| ? | ? SEE IMPORTANT NOTE ?| ?| unlikely ? ? ? | ? | ? + +-------- --------+ + -----+| >=0.25 ? ? ? | Bacterial ? ? ?| Encouraged ? ?| ? | ?| infection ? ? ?| ? | ? | ?| likely ? | ? | Consider treatment failure ?+ +------- ---------+ -+ if levels does not decrease | >0.5 ? | Bacterial ? ? ?| Strongly ? ? ?| appropriately ? | ?| infection very | encouraged ? ?| ? | ?| likely ? | ? | ? + +-------- --------+ + -----+ Discontinuation of antibiotics in high-acuity patients with suspected or confirmed sepsis in Adults >= 18 years of age. + +-------- --------+ + -----+|Procalcitonin |Interpretation ?|Antibiotic ? ? |Considerations ? |ng/mL ? | ?|recommendation | ? + +-------- --------+ + -----+| <0.25 ?| Bacterial ? ? ?| Strongly ? ? ?| ? | ?| infection very | discouraged ? | Overruling: ? | ?| unlikely ? ? ? | ? | ? Clinically unstable ? ? ? + +-------- --------+ + ? High risk for adverse ? ? | <0.5 or drop | Bacterial ? ? ?| Discouraged ? | ? outcome ? | >80% from ? ?| infection ? ? ?| ? | ? SEE IMPORTANT NOTE ?| highest PCT ?| unlikely ? ? ? | ? | ? | level ?| ?| ? | ? + +-------- --------+ + -----+| >=0.5 ?| Bacterial ? ? ?| Encouraged ? ?| ? | ?| infection ? ? ?| ? | ? | ?| likely ? | ? | Consider treatment failure ?+ +------- ---------+ -+ if levels does not decrease | >1.0 ? | Bacterial ? ? ?| Strongly ? ? ?| appropriately ? | ?| infection very | encouraged ? ?| ? | ?| likely ? | ? | ? + +-------- --------+ + -----+ Percentage of drop of Procalcitonin calculation for Discontinuation of antibiotics in high-acuity patients with suspected or confirmed sepsis in Adults >= 18 years of age. ? Procalcitonin highest{}-Procalcitonin current{}Delta Procalcitonin = x100% ? Procalcitonin current {} IMPORTANT NOTE: Procalcitonin may be elevated without bacterial infection by physiologic stress related to trauma, van, chronic dialysis, metastatic cancer, surgery in the past seven days, malaria, some fungal infections, and some forms of vasculitis. The interpretation algorithm may not apply to patients with immunosuppression (equivalent of >10 mg of prednisone daily), HIV with CD4 cell count < 350 cells/mm3, active malignancy on systemic chemotherapy, solid organ transplant or hematopoietic stem cell transplantation, or hospital acquired pneumonia. Additionally, some clinical trials of procalcitonin have excluded patients with shock requiring vasopressor use, acute respiratory failure requiring mechanical ventilation, or those with known lung abscess/empyema. For further information please refer to:[email or web address] Lab Interpretation Abnormal (test code = 46182-9) [facility]AL[facility]IN2021[facility] 19:28:58 Test Item Value Reference Range Interpretation Comments Procalcitonin (test code = 0.51 ng/mL <0.08 H [id number]) CALE (test code = CALE) Lab Interpretation (test code = Abnormal 93275-2) [facility]villeGLYCOSYLATED HEMOGLOBIN (A1C)2021-04-27 19:18:00 Test Item Value Reference Range Interpretation Comments HGB A1C (test code = 6.7 % 4.0-5.7 H 4548-4) CALE (test code = CALE) Reference RangesNormal: <5.7%Prediabetes: 5.7 - 6.4%Diabetes: > 6.5% Lab Interpretation (test Abnormal code = 02334-4) [facility]OS[facility] H[facility]GLOBIN (A1C)2021-04-27 19:18:00 Test Item Value Reference Range Interpretation Comments HGB A1C (test code = 4548-4) 6.7 % 4.0-5.7 H CALE (test code = CALE) Lab Interpretation (test code = Abnormal 97270-4) [facility]LACT[facility] [id number] 19:09:57 Test Item Value Reference Range Interpretation Comments LDH (test code = 3933005623) 420 U/L 300-600 Lab Interpretation (test code = Normal 65747-4) [facility]LACT[facility] [id number] 19:09:57 Test Item Value Reference Range Interpretation Comments LDH (test code = 0162800774) 420 U/L 300-600 Lab Interpretation (test code = Normal 53160-4) [facility]villeD-[id number] 19:08:56 Test Item Value Reference Interpretation Comments Range D-DIMER (test code = See_Comment H [Autom ated 4029534116) message] The system which generated this result transmitted reference range : <0.50 ?g/mL (FEU). The reference range was not used to interpret this result as normal/abnormal . CALE (test code = This test may be CALE) used in conjunction with a clinical pretest probability (PTP) assessment model to exclude venous thromboembolism (VTE) in patients suspected of deep venous thrombosis (DVT) and pulmonary embolism (PE) A D-Dimer value less than 0.50 ?g/ml (FEU) has a negative predicative value of 96 to 100% (95% CI)and 97 to 100% (95% CI) as an aid in the diagnosis of deep vein thrombosis (DVT) and pulmonary embolism when there is low or moderate pretest probability of PE or DVT. D-Dimer values are expressed in initial fibrinogen equivalent units (FEU)" The assay results should be used with other information, including the clinical context, in forming a diagnosis. Lab Interpretation Abnormal (test code = 67571-2) [facility]villeD-[id number] 19:08:56 Test Item Value Reference Range Interpretation Comments D-DIMER (test code = See_Comment H [Autom ated message] 9357269140) The system JumpCam generated this result transmitted ref erence range: <0.50 ?g /mL (FEU). The refe rence range was not u sed to interpret this result as normal/abnor mal. CALE (test code = CALE) Lab Interpretation (test Abnormal code = 15042-2) [facility]URINALYSIS2021-08-24 18:59:50 Test Item Value Reference Range Interpretation Comments APPEARANCE (test code = Clear Clear 8605633716) COLOR (test code = Yellow Yellow 8524228252) PH (test code = 4.8-8.0 4777561535) SP GRAVITY (test code = 1.003-1.030 0077069258) GLU U QUAL (test code = Normal Normal 3752292651) BLOOD (test code = Negative Negative 3860874929) KETONES (test code = Negative Negative 2457296544) PROTEIN (test code = Negative Negative 2887-8) UROBILIN (test code = Normal Normal 9024541112) BILIRUBIN (test code = Negative Negative 7567152076) NITRITE (test code = Negative Negative 6560699682) LEUK RICHMOND (test code = Negative Negative 0413218963) RBC/HPF (test code = <1 See_Comment [Autom ated message] 1677851391) The system JumpCam generated this result transmitted ref erence range: 0 - 3 HP F. The reference range was not used to int erpret this result as normal/abnormal . WBC/HPF (test code = <1 See_Comment [Autom ated message] 6044067772) The system JumpCam generated this result transmitted ref erence range: 0 - 5 HP F. The reference range was not used to int erpret this result as normal/abnormal . BACTERIA (test code = Negative Negative 5252216912) MUCOUS (test code = Slight Negative LPF A 0763342976) TRANS EPI (test code = <1 See_Comment [Aut omated message] 1302162709) The system JumpCam generated this result transmitted ref erence range: <=1 HPF. The reference range was not used to int erpret this result as normal/abnormal . Lab Interpretation (test Abnormal code = 07869-9) [facility]2021-[facility]-24 18:59:50 Test Item Value Reference Range Interpretation Comments APPEARANCE (test code = Clear Clear 8273807514) COLOR (test code = Yellow Yellow 5176044274) PH (test code = 4.8-8.0 0521325877) SP GRAVITY (test code = 1.003-1.030 8322447477) GLU U QUAL (test code = Normal Normal 7295119421) BLOOD (test code = Negative Negative 9159684501) KETONES (test code = Negative Negative 7935227524) PROTEIN (test code = Negative Negative 2887-8) UROBILIN (test code = Normal Normal 4985506932) BILIRUBIN (test code = Negative Negative 0491001340) NITRITE (test code = Negative Negative 9240378105) LEUK R[place]MON[place] (test code = Negative Negative 9524049579) RBC/HPF (test code = <1 See_Comment [Autom ated message] 6314609073) The system JumpCam generated this result transmitted ref erence range: 0 - 3 HP F. The reference range was not used to int erpret this result as normal/abnormal . WBC/HPF (test code = <1 See_Comment [Autom ated message] 7207311350) The system JumpCam generated this result transmitted ref erence range: 0 - 5 HP F. The reference range was not used to int erpret this result as normal/abnormal . BACTERIA (test code = Negative Negative 9944397045) MUCOUS (test code = Slight Negative LPF A 1866502133) TRANS EPI (test code = <1 See_Comment [Aut omated message] 2334862259) The system JumpCam generated this result transmitted ref erence range: <=1 HPF. The reference range was not used to int erpret this result as normal/abnormal . Lab Interpretation (test Abnormal code = 27556-2) [facility]villeFERRITIN [id number] 18:50:31 Test Item Value Reference Range Interpretation Comments FERRITIN (test code = 244.0 ng/mL 11.0-264.0 6581574223) CALE (test code = CALE) Biotin has been reported to cause a negative bias, interpret results relative to patient's use of biotin. Lab Interpretation (test Normal code = 55029-2) [facility]villeFERRITIN [id number] 18:50:31 Test Item Value Reference Range Interpretation Comments FERRITIN (test code = 8429050981) 244.0 ng/mL 11.0-264.0 CALE (test code = CALE) Lab Interpretation (test code = Normal 07038-4) [facility] StephenvilleLactic Acid Whole [id number] 18:49:50 Test Item Value Reference Range Interpretation Comments LACTIC ACID (test code = 3.41 mmol/L 0.50-2.20 H 2593307742) Lab Interpretation (test code = Abnormal 84176-6) [facility]villeLactic Acid Whole [id number] 18:49:50 Test Item Value Reference Range Interpretation Comments LACTIC ACID (test code = 3.41 mmol/L 0.50-2.20 H 5201287708) Lab Interpretation (test code = Abnormal 74736-2) [facility] StephenvilleN-TERMINAL [id number] 18:25:48 Test Item Value Reference Range Interpretation Comments NT-proBNP (test code 429 pg/mL See_Comment H [Autom ated = 6595786212) message] The system which generated this result transmitted reference range : <=125. The reference range was not used to interpret this result as normal/abnormal . CALE (test code = CALE) Biotin has been reported to cause a negative bias, interpret results relative to patient's use of biotin. Lab Interpretation Abnormal (test code = 68882-8) [facility]villeN-TERMINAL [id number] 18:25:48 Test Item Value Reference Range Interpretation Comments NT-proBNP (test code = 429 pg/mL See_Comment H [Aut omated message] 2995668709) The system JumpCam generated this result transmit sheila reference range : <=125. The refe rence range was not u sed to interpret th is result as normal/abnormal . CALE (test code = CALE) Lab Interpretation (test Abnormal code = 91258-8) [facility] StephenvilleLIPID PANEL (86623)(TOTAL CHOLESTEROL, TRIGLYCERIDES, HDL)2021-04-27 18:15:25 Test Item Value Reference Range Interpretation Comments CHOL (test code = 158 mg/dL 120-200 5014388990) HDL (test code = 40 mg/dL >50 L 0339289619) HDLC RATIO (test code = See_Comment [Au tomated message] 6286631836) The system JumpCam generated this result transmit sheila reference range : <=4.5. The refe rence range was not u sed to interpret th is result as normal/abnormal . TRIG (test code = 128 mg/dL 30-170 7052465380) LDL CHOL (test code = 92 mg/dL See_Comment [Auto mated message] 26343-7) The system JumpCam generated this result transmit sheila reference range : <=160. The refe rence range was not u sed to interpret th is result as normal/abnormal . VLDL (test code = 26 mg/dL 5-60 2622648405) Lab Interpretation (test Abnormal code = 08269-1) [facility]villeLIPID PANEL (64753)(TOTAL CHOLESTEROL, TRIGLYCERIDES, HDL)2021-04-27 18:15:25 Test Item Value Reference Range Interpretation Comments CHOL (test code = 158 mg/dL 120-200 1835563524) HDL (test code = 40 mg/dL >50 L 2871688129) HDLC RATIO (test code = See_Comment [Au tomated message] 0684869964) The system JumpCam generated this result transmit sheila reference range : <=4.5. The refe rence range was not u sed to interpret th is result as normal/abnormal . TRIG (test code = 128 mg/dL 30-170 8893241418) LDL CHOL (test code = 92 mg/dL See_Comment [Auto mated message] 06172-4) The system JumpCam generated this result transmit sheila reference range : <=160. The refe rence range was not u sed to interpret th is result as normal/abnormal . VLDL (test code = 26 mg/dL 5-60 0839500807) Lab Interpretation (test Abnormal code = 06295-5) [facility]villeXR CHEST 1 [id number] 15:38:17 Mild burden of multifocal opacities associated with confirmed COVID-19pneumonia. Preliminary ReportDictated by Resident: Michael Fernandez MD., have reviewed this study and agreewith theabove report.EXAM: XR CHEST 1 VW HISTORY: 70 years-old Female; hypoxia . "COVID-19 pneumoniaconfirmed" TECHNIQUE: Single frontal view of the chest. COMPARISON: None FINDINGS: The lungs are mildly underinflated. Bilateral airspace and interstitialopacities predominantly affect the middle and lower lobes. No pleuralabnormality is visualized. ? The cardiomediastinal silhouette is normal accounting for technique. No acute osseous abnormality is present. [facility], Radiant Results Inft User - 04/27/2021 10:39 AM CDT EXAM: XR CHEST 1 VWHISTORY: 70 years-old Female; hypoxia . "COVID-19 pneumonia confirmed"TECHNIQUE: Single frontal view of the chest.COMPARISON: NoneFINDINGS:The lungs are mildly underinflated. Bilateral airspace and interstitialopacities predominantly affect the middle and lower lobes. No pleuralabnormality is visualized. The cardiomediastinal silhouette is normal accounting for technique.No acute osseous abnormality is present. IMPRESSIONMild burden of multifocal opacities associated with confirmed COVID-19pneumonia.Preliminary Report Dictated by Resident: Michael Murillo MD., have reviewed this study and agree with theabove report.[facility]XR CHEST 1 [id number] 15:38:17 Mild burden of multifocal opacities associated with confirmed COVID-19pneumonia. Preliminary ReportDictated by Resident: Michael Fernandez MD., have reviewed this study and agreewith theabove report.EXAM: XR CHEST 1 VW HISTORY: 70 years-old Female; hypoxia . "COVID-19 pneumoniaconfirmed" TECHNIQUE: Single frontal view of the chest. COMPARISON: None FINDINGS: The lungs are mild ly underinflated. Bilateral airspace and interstitialopacities predominantly affect the middle and lower lobes. No pleuralabnormality is visualized. ? The cardiomediastinal silhouette is normal accounting for technique. No acute osseous abnormality is present. [facility], Radiant Results Inft User - 04/27/2021 10:39 AM CDT EXAM: XR CHEST 1 VWHISTORY: 70 years-old Female; hypoxia . "COVID-19 pneumonia confirmed"TECHNIQUE: Single frontal view of the chest.COMPARISON: NoneFINDINGS:The lungs are mildly underinflated. Bilateral airspace and interstitialopacities predominantly affect the middle and lower lobes. No pleuralabnormality is visualized. The cardiomediastinal silhouette is normal accounting for technique.No acute osseous abnormality is present. IMPRESSIONMild burden of multifocal opacities associated with confirmed COVID-19pneumonia.Preliminary Report Dictated by Resident: Angeles Villar, Michael Alex MD., have reviewed this study and agree with theabove report.[facility]villePELON [id number] 13:44:31 Test Item Value Reference Interpretation Comments Range TROPONIN I (test <0.012 See_Comment [Automated code = 0402467594) message] The system which generated this result transmitted reference range : <=0.034 ng/mL. The reference range was not used to interpret this result as normal/abnormal . CALE (test code = Reference (Normal) CALE) Range (defined by the 99th percentile reference limit): <= 0.034 ng/mL Note: Cardiac troponin begins to rise 3-4 hours after the onset of ischemia. Repeat in 4-6 hours if the sample was drawn within 3-4 hours of the onset of the symptom and found normal. Diagnosis of myocardial injury is made with acute changes in cTn concentrations with at least one serial sample above the 99th percentile upper reference limit (URL), taken together with the patient's clinical presentation. Biotin has been reported to cause a negative bias, interpret results relative to patient's use of biotin. Lab Interpretation Normal (test code = 24641-3) [facility]villeTROPONIN [id number] 13:44:31 Test Item Value Reference Range Interpretation Comments TROPONIN I (test code = <0.012 See_Comment [Au tomated message] 1701170272) The system JumpCam generated this result transmitted ref erence range: <=0.034 ng/mL. The reference r bj was not used to interpret this result as normal/abnor mal. CALE (test code = CALE) Lab Interpretation (test Normal code = 01603-8) [facility]villeCOMP. METABOLIC PANEL (50346)2021-04-27 13:33:34 Test Item Value Reference Range Interpretation Comments NA (test code = 142 mmol/L 135-145 4458990195) K (test code = 3.8 mmol/L 3.5-5.0 1225590106) CL (test code = 101 mmol/L 98-108 2281372018) CO2 TOTAL (test code = 28 mmol/L 23-31 1801440612) AGAP (test code = 2-16 1210712790) BUN (test code = 18 mg/dL 7-23 5329587486) GLUCOSE (test code = 144 mg/dL 70-110 H 2842250799) CREATININE (test code = 0.83 mg/dL 0.50-1.04 3560459771) TOTAL BILI (test code = 0.7 mg/dL 0.1-1.7 5311997550) CALCIUM (test code = 9.8 mg/dL 8.6-10.6 9599224390) T PROTEIN (test code = 7.5 g/dL 6.3-8.2 9817619447) ALBUMIN (test code = 4.0 g/dL 3.5-5.0 9394197500) ALK PHOS (test code = 89 U/L 34-122 1736675541) ALTv (test code = 41 U/L 5-35 H 1742-6) AST(SGOT) (test code = 31 U/L 13-40 5177909253) eGFR (test code = mL/min/1.73m2 7593605641) CALE (test code = CALE) Association of Glomerular Filtration Rate (GFR) and Staging of Kidney Disease* + --+ --+ ------+| GFR (mL/min/1.73 m2) ?| With Kidney Damage ?| ?Without Kidney Damage+ --------+ --------+ +| ?>90 ?| ?Stage one ?| ? Normal ?+ ---+ ---+ -------+| ?60-89 ?| ?Stage two ?| ? Decreased GFR ? + --+ --+ ------+| ?30-59 ?| ?Stage three ?| ? Stage three ? + --+ --+ ------+| ?15-29 ?| ?Stage four ? | ? Stage four ?+ ---+ ---+ -------+| ?<15 (or dialysis) ? ?| ?Stage five ? | ? Stage five ?+ ---+ ---+ -------+ *Each stage assumes the associated GFR level has been in effect for at least three months. ?Stages 1 to 5, with or without kidney disease, indicate chronic kidney disease. Notes: Determination of stages one and two (with eGFR >59mL/min/1.73 m2) requires estimation of kidney damage for at least three months as defined by structural or functional abnormalities of the kidney, manifested by either:Pathological abnormalities or Markers of kidney damage (including abnormalities in the composition of the blood or urine or abnormalities in imaging tests). Lab Interpretation Abnormal (test code = 52098-1) [facility]. METABOLIC PANEL (51343)2021-04-27 13:33:34 Test Item Value Reference Range Interpretation Comments NA (test code = 0819517062) 142 mmol/L 135-145 K (test code = 7427915690) 3.8 mmol/L 3.5-5.0 CL (test code = 1357030547) 101 mmol/L 98-108 CO2 TOTAL (test code = 8877142845) 28 mmol/L 23-31 AGAP (test code = 3284189720) 2-16 BUN (test code = 0143389658) 18 mg/dL 7-23 GLUCOSE (test code = 8402718956) 144 mg/dL 70-110 H CREATININE (test code = 0.83 mg/dL 0.50-1.04 5192977509) TOTAL BILI (test code = 0.7 mg/dL 0.1-1.9 4965763368) CALCIUM (test code = 0190545066) 9.8 mg/dL 8.6-10.6 T PROTEIN (test code = 3721102045) 7.5 g/dL 6.3-8.2 ALBUMIN (test code = 5880518741) 4.0 g/dL 3.5-5.0 ALK PHOS (test code = 7676226650) 89 U/L 34-122 ALTv (test code = 1742-6) 41 U/L 5-35 H AST(SGOT) (test code = 8762397017) 31 U/L 13-40 eGFR (test code = 8730386669) mL/min/1.73m2 CALE (test code = CALE) Lab Interpretation (test code = Abnormal 99951-9) [facility] Acid Whole [id number] 13:14:28 Test Item Value Reference Range Interpretation Comments LACTIC ACID (test code = 2.38 mmol/L 0.50-2.20 H 9469949120) Lab Interpretation (test code = Abnormal 30035-7) [facility] Acid Whole [id number] 13:14:28 Test Item Value Reference Range Interpretation Comments LACTIC ACID (test code = 2.38 mmol/L 0.50-2.20 H 8786487606) Lab Interpretation (test code = Abnormal 79355-6) [facility] WITH [id number] 13:11:14 Test Item Value Reference Range Interpretation Comments WBC (test code = See_Comment H [Automated 8990-2) message] The system which generated this result transmit sheila reference range : 4.30 - 11.10 10*3/?L. The reference range was not used to interpret this result as normal/abnormal . RBC (test code = See_Comment [Automated 899-8) message] The system which generated this result transmit sheila reference range : 3.93 - 5.25 10*6/?L. The reference range was not used to interpret this result as normal/abnormal . HGB (test code = 12.4 g/dL 11.6-15.0 718-7) HCT (test code = 38.3 % 35.7-45.2 4544-3) MCV (test code = 86.8 fL 80.6-95.5 787-2) MCH (test code = 28.1 pg 25.9-32.8 785-6) MCHC (test code = 32.4 g/dL 31.6-35.1 786-4) RDW-SD (test code = 44.6 fL 39.0-49.9 82854-6) RDW-CV (test code = 13.9 % 12.0-15.5 788-0) PLT (test code = See_Comment [Automated 777-3) message] The system which generated this result transmit sheila reference range : 166 - 358 10*3/ ?L. The reference range was not u sed to interpret th is result as normal/abnormal . MPV (test code = 9.9 fL 9.5-12.9 26751-8) NRBC/100 WBC (test See_Comment [Automat ed code = 0908250877) message] The system which generated this result transmit sheila reference range : 0.0 - 10.0 /100 WBCs. The reference range was not used to interpret this result as normal/abnormal . NRBC x10^3 (test code <0.01 See_Comment [Auto mated = 3419588401) message] The system which generated this result transmit sheila reference range : 10*3/?L. The reference range was not used to interpret this result as normal/abnormal . GRAN MAT (NEUT) % 90.4 % (test code = 770-8) IMM GRAN % (test code 0.90 % = 0698993026) LYMPH % (test code = 5.5 % 736-9) MONO % (test code = 3.1 % 5905-5) EOS % (test code = 0.0 % 713-8) BASO % (test code = 0.1 % 706-2) GRAN MAT x10^3(ANC) 13.65 10*3/uL 1.88-7.09 H (test code = 1194438059) IMM GRAN x10^3 (test 0.13 10*3/uL 0.00-0.06 H code = 0774473926) LYMPH x10^3 (test code 0.83 10*3/uL 1.32-3.29 L = 731-0) MONO x10^3 (test code 0.47 10*3/uL 0.33-0.92 = 742-7) EOS x10^3 (test code = <0.03 0.03-0.39 L 711-2) BASO x10^3 (test code <0.03 0.01-0.07 = 704-7) Lab Interpretation Abnormal (test code = 14194-3) [facility] WITH [id number] 13:11:14 Test Item Value Reference Range Interpretation Comments WBC (test code = See_Comment H [Automated 7990-2) message] The system which generated this result transmit sheila reference range : 4.30 - 11.10 10*3/?L. The reference range was not used to interpret this result as normal/abnormal . RBC (test code = See_Comment [Automated 789-8) message] The system which generated this result transmit sheila reference range : 3.93 - 5.25 10*6/?L. The reference range was not used to interpret this result as normal/abnormal . HGB (test code = 12.4 g/dL 11.6-15.0 718-7) HCT (test code = 38.3 % 35.7-45.2 4544-3) MCV (test code = 86.8 fL 80.6-95.5 787-2) MCH (test code = 28.1 pg 25.9-32.8 785-6) MCHC (test code = 32.4 g/dL 31.6-35.1 786-4) RDW-SD (test code = 44.6 fL 39.0-49.9 45521-1) RDW-CV (test code = 13.9 % 12.0-15.5 788-0) PLT (test code = See_Comment [Automated 777-3) message] The system which generated this result transmit sheila reference range : 166 - 358 10*3/ ?L. The reference range was not u sed to interpret th is result as normal/abnormal . MPV (test code = 9.9 fL 9.5-12.9 42480-0) NRBC/100 WBC (test See_Comment [Automat ed code = 0980946841) message] The system which generated this result transmit sheila reference range : 0.0 - 10.0 /100 WBCs. The reference range was not used to interpret this result as normal/abnormal . NRBC x10^3 (test code <0.01 See_Comment [Auto mated = 0606368692) message] The system which generated this result transmit sheila reference range : 10*3/?L. The reference range was not used to interpret this result as normal/abnormal . GRAN MAT (NEUT) % 90.4 % (test code = 770-8) IMM GRAN % (test code 0.90 % = 2474772507) LYMPH % (test code = 5.5 % 736-9) MONO % (test code = 3.1 % 5905-5) EOS % (test code = 0.0 % 713-8) BASO % (test code = 0.1 % 706-2) GRAN MAT x10^3(ANC) 13.65 10*3/uL 1.88-7.09 H (test code = 5227580460) IMM GRAN x10^3 (test 0.13 10*3/uL 0.00-0.06 H code = 5890138196) LYMPH x10^3 (test code 0.83 10*3/uL 1.32-3.29 L = 731-0) MONO x10^3 (test code 0.47 10*3/uL 0.33-0.92 = 742-7) EOS x10^3 (test code = <0.03 0.03-0.39 L 711-2) BASO x10^3 (test code <0.03 0.01-0.07 = 704-7) Lab Interpretation Abnormal (test code = 76762-4) [facility] AND [id number] 06:12:00 Test Item Value Reference Range Interpretation Comments UA Bacteria (test code = UA Few /HPF Bacteria) [facility] AND [id number] 06:12:00 Test Item Value Reference Range Interpretation Comments UA RBC (test None Seen See_Comment [Automated mes augusto] code = UA RBC) (04/05/17 1:12 AM) The [employer] which generated this result transmitted ref erence range: <=2. The reference range was not used to int erpret this result as normal/abnormal . [facility] [place] [id number] 06:12:00 Test Item Value Reference Range Interpretation Comments UA WBC (test code = UA WBC) 11-20 /HPF [facility] AND [id number] 06:12:00 Test Item Value Reference Range Interpretation Comments UA Sq Epi (test code = UA Sq Epi) Few /LPF [facility] AND [id number] 06:12:00 Test Item Value Reference Range Interpretation Comments UA Leuk Est (test Moderate *ABN*(04/05/17 code = UA Leuk Est) 1:12 AM) [facility] AND [id number] 06:12:00 Test Item Value Reference Range Interpretation Comments UA Nitrite (test code Negative (04/05/17 1:12 = UA Nitrite) AM) [facility] AND [id number] 06:12:00 Test Item Value Reference Range Interpretation Comments UA Urobilinogen (test code = UA 0.2 0.1-1.0 Urobilinogen) [facility] AND [id number] 06:12:00 Test Item Value Reference Range Interpretation Comments UA Blood (test code = Negative (04/05/17 1:12 UA Blood) AM) [facility] AND [id number] 06:12:00 Test Item Value Reference Range Interpretation Comments UA Ketones (test code Negative *NA*(04/05/17 = UA Ketones) 1:12 AM) [facility] AND [id number] 06:12:00 Test Item Value Reference Range Interpretation Comments UA Glucose (test code Negative (04/05/17 1:12 = UA Glucose) AM) [facility] AND [id number] 06:12:00 Test Item Value Reference Range Interpretation Comments UA Bili (test code = Negative *NA*(04/05/17 UA Bili) 1:12 AM) [facility] AND [id number] 06:12:00 Test Item Value Reference Range Interpretation Comments UA Protein (test code Negative (04/05/17 1:12 = UA Protein) AM) [facility] AND [id number] 06:12:00 Test Item Value Reference Range Interpretation Comments UA pH (test code = UA pH) 6.0 1 5.0-8.0 [facility] AND [id number] 06:12:00 Test Item Value Reference Range Interpretation Comments UA Turbidity (test code Slight Cloudy (04/05/17 = UA Turbidity) 1:12 AM) [facility] AND [id number] 06:12:00 Test Item Value Reference Range Interpretation Comments UA Color (test code = Yellow *NA*(04/05/17 1:12 UA Color) AM) [facility] AND [id number] 06:12:00 Test Item Value Reference Range Interpretation Comments UA Spec Grav (test code = UA Spec 1.020 1 Grav) [facility] AND [id number] 06:12:00 Test Item Value Reference Range Interpretation Comments UA Mucus (test code = UA Mucus) Moderate /LPF [facility] AND [id number] 06:12:00 Test Item Value Reference Range Interpretation Comments UA Bacteria (test code = UA Few /HPF Bacteria) [facility] AND [id number] 06:12:00 Test Item Value Reference Range Interpretation Comments UA RBC (test code = UA None Seen (04/05/17 1:12 <=2 RBC) AM) [facility] AND [id number] 06:12:00 Test Item Value Reference Range Interpretation Comments UA WBC (test code = UA WBC) 11-20 /HPF [facility] AND [id number] 06:12:00 Test Item Value Reference Range Interpretation Comments UA Sq Epi (test code = UA Sq Epi) Few /LPF [facility] AND [id number] 06:12:00 Test Item Value Reference Range Interpretation Comments UA Leuk Est (test Moderate *ABN*(04/05/17 code = UA Leuk Est) 1:12 AM) [facility] AND [id number] 06:12:00 Test Item Value Reference Range Interpretation Comments UA Nitrite (test code Negative (04/05/17 1:12 = UA Nitrite) AM) [facility] AND [id number] 06:12:00 Test Item Value Reference Range Interpretation Comments UA Urobilinogen (test code = UA 0.2 0.1-1.0 Urobilinogen) [facility] AND [id number] 06:12:00 Test Item Value Reference Range Interpretation Comments UA Blood (test code = Negative (04/05/17 1:12 UA Blood) AM) [facility] AND [id number] 06:12:00 Test Item Value Reference Range Interpretation Comments UA Ketones (test code Negative *NA*(04/05/17 = UA Ketones) 1:12 AM) [facility] AND [id number] 06:12:00 Test Item Value Reference Range Interpretation Comments UA Glucose (test code Negative (04/05/17 1:12 = UA Glucose) AM) [facility] AND [id number] 06:12:00 Test Item Value Reference Range Interpretation Comments UA Bili (test code = Negative *NA*(04/05/17 UA Bili) 1:12 AM) [facility] AND [id number] 06:12:00 Test Item Value Reference Range Interpretation Comments UA Protein (test code Negative (04/05/17 1:12 = UA Protein) AM) [facility] AND [id number] 06:12:00 Test Item Value Reference Range Interpretation Comments UA pH (test code = UA pH) 6.0 1 5.0-8.0 [facility] AND [id number] 06:12:00 Test Item Value Reference Range Interpretation Comments UA Turbidity (test code Slight Cloudy (04/05/17 = UA Turbidity) 1:12 AM) [facility] AND [id number] 06:12:00 Test Item Value Reference Range Interpretation Comments UA Color (test code = Yellow *NA*(04/05/17 1:12 UA Color) AM) [facility] AND [id number] 06:12:00 Test Item Value Reference Range Interpretation Comments UA Spec Grav (test code = UA Spec 1.020 1 Grav) [facility] AND [id number] 06:12:00 Test Item Value Reference Range Interpretation Comments UA Mucus (test code = UA Mucus) Moderate /LPF [facility]
--- NOTE | 2023-05-27 09:12 | EDPHYS ---
Physician Documentation [facility] Name: Kelly Foley Age: 72 yrs Sex: Female : 1950 Arrival Date: 05/27/2023 Time: 07:38 Bed 14 Private MD: ED Physician Adair Dixon HPI: 05/27 08:02 This 72 yrs old Female presents to ER via Unassigned with complaints of Foot Injury. snw 08:02 The patient presents with an injury, pain, that is acute. The complaints affect the snw left Achilles and dorsum of left foot. Context: The problem was sustained at home, resulted from a mis-step, 's foot, the patient can partially bear weight, uses a walker. Onset: The symptoms/episode began/occurred suddenly, last night. Associated signs and symptoms: Pertinent positives: unrelated congestion, drainage, I suspect CoVid, pt declines testing. It is unknown whether or not the patient has had similar symptoms in the past. The patient has not recently seen a physician. Historical: - Allergies: 08:15 PENICILLINS; hb - Home Meds: 08:15 Metformin Oral [Active]; Protonix 40 mg Oral granules delayed release for susp packet hb daily [Active]; losartan-hydrochlorothiazide 50-12.5 mg oral tablet daily [Active]; atorvastatin 20 mg oral tablet daily [Active]; montelukast 10 mg oral tablet daily [Active]; duloxetine 20 mg oral Capsule, Delayed Release Sprinkle daily [Active]; citalopram oral [Active]; aspirin 81 mg Oral capsule daily [Active]; fluticasone propionate 50 mcg/actuation intranasal spray, suspension daily [Active]; - PMHx: 08:15 Hypertension; hb - Immunization history:: Adult Immunizations up to date. - Social history:: Smoking status: Patient denies any tobacco usage or history of. ROS: 07:59 Eyes: Negative for injury, pain, redness, and discharge, snw 07:59 Neck: Negative for injury, pain, and swelling, Cardiovascular: Negative for chest pain, palpitations, and edema, Respiratory: Negative for shortness of breath, cough, wheezing, and pleuritic chest pain, Abdomen/GI: Negative for abdominal pain, nausea, vomiting, diarrhea, and constipation, Back: Negative for injury and pain, : Negative for injury, bleeding, discharge, and swelling, 07:59 Neuro: Negative for headache, weakness, numbness, tingling, and seizure, Psych: Negative for depression, anxiety, suicide ideation, homicidal ideation, and hallucinations, 07:59 Constitutional: Positive for body aches, 07:59 ENT: Positive for nasal discharge, rhinorrhea, sinus congestion, 07:59 MS/extremity: Positive for injury or acute deformity, decreased range of motion, ecchymosis, pain, of the left Achilles, left first toe, left second toe, left third toe, left fourth toe and left fifth toe, Exam: 07:59 Head/Face: Normocephalic, atraumatic. Eyes: Pupils equal round and reactive to light, snw extra-ocular motions intact. Lids and lashes normal. Conjunctiva and sclera are non-icteric and not injected. Cornea within normal limits. Periorbital areas with no swelling, redness, or edema. Neck: Trachea midline, no thyromegaly or masses palpated, and no cervical lymphadenopathy. Supple, full range of motion without nuchal rigidity, or vertebral point tenderness. No Meningismus. Chest/axilla: Normal chest wall appearance and motion. Nontender with no deformity. No lesions are appreciated. Cardiovascular: Regular rate and rhythm with a normal S1 and S2. No gallops, murmurs, or rubs. Normal PMI, no JVD. No pulse deficits. Respiratory: Lungs have equal breath sounds bilaterally, clear to auscultation and percussion. No rales, rhonchi or wheezes noted. No increased work of breathing, no retractions or nasal flaring. Abdomen/GI: Soft, non-tender, with normal bowel sounds. No distension or tympany. No guarding or rebound. No evidence of tenderness throughout. Back: No spinal tenderness. No costovertebral tenderness. Full range of motion. 07:59 Constitutional: The patient appears alert, awake, congested 07:59 Musculoskeletal/extremity: ROM: limited active range of motion due to pain, limited passive range of motion due to pain, in the left foot/ankle with tenderness to posterior aspect, achilles intact, echymosis proximal to bone spur, Pulses: are normal with no appreciated deficits, Weight bearing: can bear weight with assistance only, uses walker, Vital Signs: 08:14 BP 146 / 77; Pulse 97; Resp 16; Temp 98.2; Pulse Ox 96% on R/A; Weight 78.02 kg; Height hb 5 ft. 2 in. ; Pain 8/10; 09:26 BP 134 / 71; Pulse 95; Resp 15; Pulse Ox 97% ; ll1 08:14 Body Mass Index 31.46 (78.02 kg, 157.48 cm) hb 08:14 Pain Scale: Adult hb MDM: 07:51 Patient medically screened. snw 08:01 Differential diagnosis: closed fracture, contusion, tendonitis. Data reviewed: vital snw signs, nurses notes, radiologic studies. 08:03 Refusal of service: The patient/guardian displays adequate decision making capability snw and despite a detailed discussion of alternatives, benefits, risks, and consequences refuses: declines CoVid test. 08:34 ED course: x-rays completed, Pt given snack while awaiting results. snw 05/27 08:12 Order name: SARS-COV-2 RT PCR; Complete Time: 09:14 snw 05/27 07:55 Order name: Ankle Left 3 View XRAY snw 05/27 07:55 Order name: Foot Left 3 View XRAY snw 05/27 08:48 Order name: Walking boot; Complete Time: 09:12 snw Administered Medications: No medications were administered Disposition: 09:38 Co-signature as Attending Physician, Adair Dixon MD I reviewed the patient's care rn provided by the Advanced Practice Provider and agree with the diagnosis and treatment plan. Disposition Summary: 05/27/23 09:11 Discharge Ordered Notes: Location: Home snw Condition: Stable snw Diagnosis - Contusion of ankle snw - Sprain of calcaneofibular ligament of left ankle snw - SARS-associated coronavirus as the cause of diseases classified elsewhere snw Followup: snw - With: Emergency Department - When: As needed - Reason: Worsening of condition Followup: snw - With: Private Physician - When: 2 - 3 days - Reason: Recheck today's complaints, Continuance of care, Re-evaluation by your physician Discharge Instructions: - Discharge Summary Sheet snw - Ankle Sprain snw - Foot Contusion snw - Walking Boot, Adult snw - COVID-19 snw - 10 Things You Can Do to Manage Your COVID-19 Symptoms at Home - [facility] (03/19/2021) snw Forms: - Medication Reconciliation Form snw - Thank You Letter snw - Antibiotic Education snw - Prescription Opioid Use snw - Patient Portal Instructions snw - Leadership Thank You Letter snw Prescriptions: - Tramadol 50 mg Oral Tablet - take 1 tablet ORAL route every 8 hours as needed; 12 tablet; Refills: 0, snw Product Selection Permitted Signatures: Dispatcher [employer] EDMagy Branham, ZOË-C PHOTOGRAPHER NEWS-Csnw Adair Dixon MD MD rn Baxter, Heather, RN RN
--- NOTE | 2023-05-27 09:12 | ER ---
Nurse's Notes [facility] Name: Kelly Foley Age: 72 yrs Sex: Female : 1950 Arrival Date: 05/27/2023 Time: 07:38 Bed 14 Private MD: Diagnosis: Contusion of ankle;Sprain of calcaneofibular ligament of left ankle;SARS-associated coronavirus as the cause of diseases classified elsewhere Presentation: 05/27 08:14 Chief complaint: Left heel pain after mechanical fall from standing yesterday. hb Coronavirus screen: At this time, the client does not indicate any symptoms associated with coronavirus-19. Ebola Screen: No symptoms or risks identified at this time. Initial Sepsis Screen: Does the patient meet any 2 criteria? No. Patient's initial sepsis screen is negative. Does the patient have a suspected source of infection? No. Patient's initial sepsis screen is negative. Risk Assessment: Do you want to hurt yourself or someone else? Patient reports no desire to harm self or others. Onset of symptoms was May 26, 2023. 08:14 Method Of Arrival: Wheelchair hb 08:14 Acuity: JOSEPH 4 hb Historical: - Allergies: 08:15 PENICILLINS; hb - Home Meds: 08:15 Metformin Oral [Active]; Protonix 40 mg Oral granules delayed release for susp packet hb daily [Active]; losartan-hydrochlorothiazide 50-12.5 mg oral tablet daily [Active]; atorvastatin 20 mg oral tablet daily [Active]; montelukast 10 mg oral tablet daily [Active]; duloxetine 20 mg oral Capsule, Delayed Release Sprinkle daily [Active]; citalopram oral [Active]; aspirin 81 mg Oral capsule daily [Active]; fluticasone propionate 50 mcg/actuation intranasal spray, suspension daily [Active]; - PMHx: 08:15 Hypertension; hb - Immunization history:: Adult Immunizations up to date. - Social history:: Smoking status: Patient denies any tobacco usage or history of. Screenin:43 [facility] ED Fall Risk Assessment (Adult) Impaired Gait Yes (1 pt) Mobility Assist ll1 Device Used Yes (1 pt) Score/Fall Risk Level 0 - 2 = Low Risk Oriented to surroundings, Maintained a safe environment, Educated pt \T\ family on fall prevention, incl call for assistance when getting out of bed, Hourly rounding (assess needs \T\ fall precautionary measures) done. Abuse screen: Denies threats or abuse. Nutritional screening: No deficits noted. Tuberculosis screening: No symptoms or risk factors identified. Assessment: 08:34 General: Appears in no apparent distress. Behavior is calm, cooperative, appropriate ll1 for age. Pain: Complains of pain in left foot Quality of pain is described as aching. Musculoskeletal: Circulation, motion, and sensation intact. Capillary refill < 3 seconds, Reports pain in left foot. Injury Description: Bruise. 09:27 Reassessment: No changes from previously documented assessment. Patient and/or family ll1 updated on plan of care and expected duration. Pain level reassessed. Patient is alert, oriented x 3, equal unlabored respirations, skin warm/dry/pink. 09:27 Musculoskeletal: Circulation, motion, and sensation intact. Capillary refill < 3 ll1 seconds. Vital Signs: 08:14 BP 146 / 77; Pulse 97; Resp 16; Temp 98.2; Pulse Ox 96% on R/A; Weight 78.02 kg; Height hb 5 ft. 2 in. ; Pain 8/10; 09:26 BP 134 / 71; Pulse 95; Resp 15; Pulse Ox 97% ; ll1 08:14 Body Mass Index 31.46 (78.02 kg, 157.48 cm) hb 08:14 Pain Scale: Adult hb ED Course: 07:50 Patient arrived in ED. rg4 07:51 [facility] Val[facility]C [facility] snw 07:51 Adair Dixon MD is Attending Physician. snw 08:15 Triage completed. hb 08:18 Arm band placed on. hb 08:34 Mundo George, FREDO is Primary Nurse. ll1 08:34 SARS-COV-2 RT PCR Sent. ll1 08:37 Ankle Left 3 View XRAY In Process Unspecified. EDMS 08:37 Foot Left 3 View XRAY In Process Unspecified. EDMS 08:43 Patient has correct armband on for positive identification. Bed in low position. Call ll1 light in reach. Provided Education on: n/a. Cardiac monitoring not applicable on this patient. 09:00 Ortho shoe applied to left foot. ll1 09:27 No provider procedures requiring assistance completed. Patient did not have IV access ll1 during this emergency room visit. Administered Medications: No medications were administered Medication: 08:43 VIS not applicable for this client. ll1 Outcome: : Discharge ordered by . isaura : Discharged to home ambulatory, ll1 Condition: stable : Discharge instructions given to patient, Instructed on discharge instructions, follow up and referral plans. medication usage, Demonstrated understanding of instructions, follow-up care, medications, splint care, Prescriptions given X 1, : Patient left the ED. ll1 Signatures: Dispatcher [employer] EDMS Magy Vallejo, SHAMPOOER-C SHAMPOOER-Csnw Maci Colbert, RN RN Dorene Trujillo4 Mundo George RN RN ll1
--- NOTE | 2023-05-27 09:35 | RAD REPORT ---
EXAM DESCRIPTION: RAD - Ankle Left 3 View - 05/27/2023 8:36 am CLINICAL HISTORY: PAIN COMPARISON: <Comparisons> FINDINGS: Large posterior and small plantar calcaneal spur is present. Lucency is seen involving the medial malleolus which may represent a nondisplaced fracture, although age is indeterminate. Mild an kle degenerative changes are present.
--- NOTE | 2023-05-27 09:36 | RAD REPORT ---
EXAM DESCRIPTION: RAD - Foot Left 3 View - 05/27/2023 8:37 am CLINICAL HISTORY: PAIN COMPARISON: <Comparisons> FINDINGS: Large posterior and small plantar calcaneal spurs are present. No acute fracture or disloc ation is seen.
[2023-05-27 09:54] VITALS: TEMP 98.2
[2023-05-27 09:55] VITALS: BP 134/71; O2SAT 97
== END 2023-05-27 09:28 | disposition home or self-care (01) ==
LOC: ER 07:38
DX: S93.412A Sprain of calcaneofibular ligament of left ankle, initial encounter (principal); U07.1 COVID-19; I10 Essential (primary) hypertension; Z88.0 Allergy status to penicillin; Z79.82 Long term (current) use of aspirin
CPT/HCPCS: 87635; 99283